=== PATIENT | female | born 1950 | race Hispanic/Latino ===

== ENCOUNTER 2019-08-26 20:50 | Observation (INO) | payer OTHER, MEDICARE ==
[~2019-08-26] VITALS: Ht 170.2 cm; Wt 55.3 kg
[2019-08-26 21:38] LABS: BASOPHILS % (AUTO) 0.5 % (0.0-5.0); HEMATOCRIT 37.5 % (36-48); LYMPHOCYTES % (AUTO) 42.1 % (21.0-51.0); MEAN CORPUSCULAR HGB CONC 33.3 g/dL (32.0-36.0); MEAN CORPUSCULAR VOLUME 90.1 fL (79-99); NEUTROPHILS % (AUTO) 48.2 % (40.0-77.0); PLATELET COUNT (AUTO) 278 K/uL (130-400); RED BLOOD CELL COUNT(AUTO) 4.16 MIL/uL (4.00-5.50); RED CELL DISTRIBUTION WIDTH 12.9 % (11.0-15.5); WHITE BLOOD COUNT (AUTO) 8.7 K/uL (4.8-10.8)
[2019-08-26 21:51] LABS: INR 0.91 (0.85-1.15); PARTIAL THROMBOPLASTIN TIME 27.5 SEC (26.3-35.5); PROTHROMBIN TIME 9.6 SEC (9.6-11.6)
[2019-08-26 21:52] LABS: CREATININE 0.7 mg/dL (0.5-1.5); POTASSIUM 3.6 mmol/L (3.5-5.1)
[2019-08-26] MEDS ORDERED: ASPIRIN 325 MG TABLET ONE (21:54)
[2019-08-26 21:55] LABS: ALBUMIN 3.9 g/dL (3.5-5.0); BILIRUBIN,TOTAL 0.5 mg/dL (0.2-1.0); TOTAL PROTEIN, SERUM 7.9 g/dL (6.0-8.3)
[2019-08-26 22:05] LABS: B-TYPE NATRIURETIC PEPTIDE < 5 pg/mL (0-100)
[2019-08-26] MEDS ORDERED: NITROGLYCERIN 0.4 MG SL TAB SL ONE (22:37)
[2019-08-26] MEDS ORDERED: NITROGLYCERIN 1GM/1 INCH PACKET TD ONE (23:24)
[2019-08-27] MEDS ORDERED: METF-446 PO (02:45)
[2019-08-27] MEDS ORDERED: GLIP10TA9 PO (02:45)
[2019-08-27] MEDS ORDERED: ATOR10 PO (02:45)
[2019-08-27] MEDS ORDERED: CLOP75TA32 PO (02:47)
[2019-08-27] MEDS ORDERED: LINA5TAB PO (02:47)
[2019-08-27] MEDS ORDERED: ASPI-1181 PO (02:47)
[2019-08-27] MEDS ORDERED: DEXTROSE 50%-WATER 50 ML DISP.SYRIN IV PRN (03:30)
[2019-08-27] MEDS ORDERED: GLUCAGON 1MG KIT 1 MG ML IM PRN (03:30)
[2019-08-27] MEDS ORDERED: NITROGLYCERIN 1GM/1 INCH PACKET TD ONE ×2 (04:51→12:56)
[2019-08-27] MEDS: NITROGLYCERIN 1GM/1 INCH PACKET TD SCH ×3 (04:52→18:00)
[2019-08-27 05:03] VITALS: BP 126/60
[2019-08-27 05:32] LABS: CREATINE KINASE, TOTAL 68 U/L (21-232); MYOGLOBIN 37 ng/mL (10-92); TROPONIN I < 0.04 ng/mL (0.00-0.06)
[2019-08-27] MEDS ORDERED: INSULIN HUMULIN R 100 UNIT/ML 3ML ONE ×2 (06:34→13:50)
[2019-08-27] MEDS: INSULIN R PO SS1 SQ SCH ×4 (06:41→22:49)
[2019-08-27] MEDS: ASPIRIN 325 MG TABLET PO SCH (09:00)
[2019-08-27] MEDS: METOPROLOL TARTRATE 25 MG TAB PO SCH ×2 (09:00→22:51)
[2019-08-27] MEDS ORDERED: METOPROLOL TARTRATE 25 MG TAB ONE (09:59)
[2019-08-27] MEDS ORDERED: ASPIRIN 325 MG TABLET ONE (10:11)
[2019-08-27 16:10] VITALS: BP 116/71
--- NOTE | 2019-08-27 16:29 | NUR ---
Initial Assessment Patient lives alone. No home services. DME: glucometer, cane, 2 wheel walker. Patient is independent and drives. PCP is Dr. Paxton Garcia. [facility]acy [facility] in [place]. DCP is home. Patient has copy of Medical Power of [employer]. Son, Bakari Huerta Jr is Health Care Agent. Emergency contact is daughter, Viv Singh, . Addendum: 08/27/19 at 1632 by AURELIO PERALES SS Amended: Links added.
[2019-08-27] MEDS ORDERED: HYDRALAZINE HCL 20 MG/ML VIAL IV PRN (18:45)
[2019-08-27] MEDS ORDERED: LACTULOSE 20 GM/30 ML UDCUP PO PRN (18:45)
[2019-08-27] MEDS ORDERED: IPRATROPIUM/ALBUTEROL SULFATE 3 ML SOLUTION IH PRN (18:45)
[2019-08-27] MEDS ORDERED: ATORVASTATIN CALCIUM 10 MG TABLET PO SCH (18:45)
[2019-08-27] MEDS ORDERED: ONDANSETRON HCL 4 MG/2 ML VIAL IVP PRN (18:45)
--- NOTE | 2019-08-27 18:50 | NUR ---
Called Dr. Osman's office to page for cardiology consult. Left message with answering services.
[2019-08-27 19:29] VITALS: BP 132/58
[2019-08-27] MEDS: GLIPIZIDE 5 MG TABLET PO SCH (22:50)
[2019-08-27] MEDS: METFORMIN HCL 500 MG TABLET PO SCH (22:51)
[2019-08-27 23:42] VITALS: BP 118/69
[2019-08-28] MEDS: NITROGLYCERIN 1GM/1 INCH PACKET TD SCH ×4 (00:27→18:00)
[2019-08-28 03:27] VITALS: BP 101/52
[2019-08-28 06:06] LABS: HEMATOCRIT 35.9 % (36-48); MEAN CORPUSCULAR HEMOGLOBIN 30.3 pg (27.0-33.0); MEAN CORPUSCULAR HGB CONC 33.7 g/dL (32.0-36.0); MEAN CORPUSCULAR VOLUME 89.8 fL (79-99); PLATELET COUNT (AUTO) 269 K/uL (130-400); RED CELL DISTRIBUTION WIDTH 12.8 % (11.0-15.5)
[2019-08-28 06:14] LABS: CREATININE 0.8 mg/dL (0.5-1.5); POTASSIUM 3.8 mmol/L (3.5-5.1)
[2019-08-28] MEDS: INSULIN R PO SS1 SQ SCH ×4 (06:28→22:44)
[2019-08-28 08:00] VITALS: BP 112/62
[2019-08-28] MEDS: LINAGLIPTIN 5 MG TABLET PO SCH (09:00)
[2019-08-28] MEDS: GLIPIZIDE 5 MG TABLET PO SCH ×2 (09:00→22:49)
[2019-08-28] MEDS: METFORMIN HCL 500 MG TABLET PO SCH ×2 (09:00→22:49)
[2019-08-28] MEDS: METOPROLOL TARTRATE 25 MG TAB PO SCH ×2 (10:18→22:49)
[2019-08-28] MEDS: ASPIRIN 325 MG TABLET PO SCH (10:18)
[2019-08-28] MEDS: CLOPIDOGREL BISULFATE 75 MG TAB PO SCH (10:21)
[2019-08-28] MEDS ORDERED: REGADENOSON 0.4 MG/5 ML PF SYG IVP SCH (11:30)
[2019-08-28 13:33] VITALS: BP 122/57
[2019-08-28 17:13] VITALS: BP 112/65
[2019-08-28 19:50] VITALS: BP 119/72
[2019-08-28 23:20] VITALS: BP 113/61
[2019-08-29] MEDS: NITROGLYCERIN 1GM/1 INCH PACKET TD SCH ×3 (00:23→13:09)
[2019-08-29 04:00] VITALS: BP 106/60
[2019-08-29] MEDS: INSULIN R PO SS1 SQ SCH ×2 (06:14→13:13)
[2019-08-29 08:00] VITALS: BP 118/58
[2019-08-29] MEDS: METOPROLOL TARTRATE 25 MG TAB PO SCH (09:23)
[2019-08-29] MEDS: ASPIRIN 325 MG TABLET PO SCH (09:23)
[2019-08-29] MEDS: METFORMIN HCL 500 MG TABLET PO SCH (09:24)
[2019-08-29] MEDS: CLOPIDOGREL BISULFATE 75 MG TAB PO SCH (09:24)
[2019-08-29] MEDS: LINAGLIPTIN 5 MG TABLET PO SCH (09:24)
[2019-08-29] MEDS: GLIPIZIDE 5 MG TABLET PO SCH (09:25)
[2019-08-29 11:53] VITALS: BP 121/71
== END 2019-08-29 16:20 | disposition home or self-care (01) ==
LOC: EDH 20:50 → EDHIP 22:46 → 3BH 08-27 16:29
PROVIDERS: ADMIT Internal Medicine; ATTEND Internal Medicine
DX: I25.110 Atherosclerotic heart disease of native coronary artery with unstable angina pectoris (principal); E11.9 Type 2 diabetes mellitus without complications; E78.5 Hyperlipidemia, unspecified; Z95.818 Presence of other cardiac implants and grafts; Z79.82 Long term (current) use of aspirin; Z79.02 Long term (current) use of antithrombotics/antiplatelets; Z79.84 Long term (current) use of oral hypoglycemic drugs; Z79.899 Other long term (current) drug therapy; Z88.0 Allergy status to penicillin
CPT/HCPCS: 36415 ×3; 71045 ×2; 78452; 80048; 80053; 82550 ×2; 82948 ×15; 83874; 83880; 84484 ×3; 85025; 85027; 85610; 85730; 93005 ×3; 93017; 93306; 93356; 94664; 96372 ×3; 96374; 99284; A9500 ×2; G0378 ×62; J1815 ×6; J2785; J7070

== ENCOUNTER → 2020-05-25 | Outpatient (CLI) | payer OTHER, MEDICARE ==
[~2020-05-25] MED LIST: ASPI-1443 PO; ATOR10 PO; CLOP75TA32 PO; GLIP10TA9 PO; LINA5TAB PO; METF-446 PO
== END | disposition home or self-care (01) ==
LOC: RAH 14:58
PROVIDERS: ATTEND Family Medicine
DX: Z12.31 Encounter for screening mammogram for malignant neoplasm of breast (principal)
CPT/HCPCS: 77067

== ENCOUNTER 2021-07-13 16:18 | Emergency (ER) | payer OTHER, MEDICARE ==
[~2021-07-13] VITALS: Ht 170.2 cm; Wt 50.3 kg
[2021-07-13 16:25] VITALS: BP 141/91
== END 2021-07-13 17:38 | disposition home or self-care (01) ==
LOC: EDH 16:18
DX: T83.092A Other mechanical complication of nephrostomy catheter, initial encounter (principal); E11.9 Type 2 diabetes mellitus without complications; Z79.82 Long term (current) use of aspirin; Z79.84 Long term (current) use of oral hypoglycemic drugs; Z79.899 Other long term (current) drug therapy; Z88.0 Allergy status to penicillin; Z90.49 Acquired absence of other specified parts of digestive tract; Y83.8 Other surgical procedures as the cause of abnormal reaction of the patient, or of later complication, without mention of misadventure at the time of the procedure; Y92.89 Other specified places as the place of occurrence of the external cause
CPT/HCPCS: 99281

== ENCOUNTER 2021-07-15 18:08 | Emergency (ER) | payer OTHER, MEDICARE ==
[~2021-07-15] VITALS: Ht 170.2 cm; Wt 50.3 kg
[2021-07-15 22:02] VITALS: BP 121/75
== END 2021-07-15 22:06 | disposition home or self-care (01) ==
LOC: EDH 18:08
DX: T83.032A Leakage of nephrostomy catheter, initial encounter (principal); E11.9 Type 2 diabetes mellitus without complications; Z88.0 Allergy status to penicillin; Z79.899 Other long term (current) drug therapy; Y84.8 Other medical procedures as the cause of abnormal reaction of the patient, or of later complication, without mention of misadventure at the time of the procedure; Y92.89 Other specified places as the place of occurrence of the external cause
CPT/HCPCS: 99281

== ENCOUNTER 2021-12-07 20:31 | Emergency (ER) | payer OTHER, MEDICARE ==
[~2021-12-07] VITALS: Ht 170.2 cm; Wt 47.2 kg
[2021-12-07 21:14] LABS: APPEARANCE,URINE CLOUDY (CLEAR); BILIRUBIN,URINE NEGATIVE (NEGATIVE); COLOR,URINE YELLOW (YELLOW); GLUCOSE, URINE (UA) 500 mg/dL (NEGATIVE); KETONES,URINE NEGATIVE (NEGATIVE); LEUKOCYTE ESTERASE ,URINE LARGE (NEGATIVE); NITRATE,URINE NEGATIVE (NEGATIVE); OCCULT BLOOD,URINE LARGE (NEGATIVE); PH,URINE 6.5 (5.0-8.0); PROTEIN,URINE 100 mg/dL (NEGATIVE); UROBILINOGEN,URINE 0.2 mg/dL (0.2-1.0)
[2021-12-07 21:26] LABS: BACTERIA,URINE Few /HPF (None Seen); SQUAMOUS EPITHELIAL CELL,UR Rare /HPF (0-2); WBC,URINE 51-100 /HPF (0-1)
[2021-12-07 21:41] LABS: BASOPHILS % (AUTO) 0.2 % (0.0-5.0); EOSINOPHILS % (AUTO) 0.5 % (0.0-8.0); HEMATOCRIT 31.9 % (36-48); LYMPHOCYTES % (AUTO) 61.7 % (21.0-51.0); MEAN CORPUSCULAR HEMOGLOBIN 31.1 pg (27.0-33.0); MEAN CORPUSCULAR HGB CONC 32.6 g/dL (32.0-36.0); MEAN CORPUSCULAR VOLUME 95.5 fL (79-99); NEUTROPHILS % (AUTO) 20.4 % (40.0-77.0); PLATELET COUNT (AUTO) 273 K/uL (130-400); RED BLOOD CELL COUNT(AUTO) 3.34 MIL/uL (4.00-5.50); RED CELL DISTRIBUTION WIDTH 15.1 % (11.0-15.5); WHITE BLOOD COUNT (AUTO) 4.1 K/uL (4.8-10.8)
[2021-12-07] MEDS ORDERED: PHENAZOPYRIDINE HCL 200 MG TABLET ONE (21:49)
[2021-12-07 21:51] LABS: CREATININE 0.6 mg/dL (0.5-1.5)
[2021-12-07 21:55] LABS: POTASSIUM 2.9 mmol/L (3.5-5.1)
[2021-12-07] MEDS ORDERED: KCL 20 MEQ ERTAB PO ONE (21:57)
[2021-12-07] MEDS ORDERED: PHEN-847 PO (22:30)
[2021-12-07] MEDS ORDERED: CEFTRIAXONE 1G VIAL IVP ONE (22:30)
[2021-12-07] MEDS ORDERED: CEPH500B PO (22:30)
[2021-12-07 22:38] VITALS: BP 126/78
== END 2021-12-07 22:58 | disposition home or self-care (01) ==
LOC: EDH 20:31
DX: N39.0 Urinary tract infection, site not specified (principal); E11.9 Type 2 diabetes mellitus without complications; Z88.0 Allergy status to penicillin; Z79.82 Long term (current) use of aspirin; Z79.84 Long term (current) use of oral hypoglycemic drugs; Z98.890 Other specified postprocedural states
CPT/HCPCS: 36415; 80048; 81001; 85025; 87088; 96374; 99283; J0696

== ENCOUNTER 2022-03-04 23:37 | Emergency (ER) | payer OTHER, MEDICARE ==
[~2022-03-04] VITALS: Ht 170.2 cm; Wt 46.3 kg
[~2022-03-04 23:37] MED LIST changes: +CEPH500B PO; +PHEN-847 PO
[2022-03-05 01:07] LABS: APPEARANCE,URINE CLEAR (CLEAR); BILIRUBIN,URINE NEGATIVE (NEGATIVE); COLOR,URINE YELLOW (YELLOW); GLUCOSE, URINE (UA) >=1000 mg/dL (NEGATIVE); KETONES,URINE NEGATIVE (NEGATIVE); LEUKOCYTE ESTERASE ,URINE TRACE (NEGATIVE); NITRATE,URINE NEGATIVE (NEGATIVE); OCCULT BLOOD,URINE MODERATE (NEGATIVE); PROTEIN,URINE NEGATIVE (NEGATIVE); UROBILINOGEN,URINE 0.2 mg/dL (0.2-1.0)
[2022-03-05 01:13] LABS: BACTERIA,URINE Few /HPF (None Seen); MUCUS,URINE Few LPF (None Seen); SQUAMOUS EPITHELIAL CELL,UR Few /HPF (0-2)
[2022-03-05] MEDS ORDERED: PHENAZOPYRIDINE HCL 200 MG TABLET PO ONE (02:00)
[2022-03-05] MEDS ORDERED: CEPHALEXIN 500 MG CAPSULE PO ONE (02:00)
[2022-03-05] MEDS ORDERED: PHEN-847 PO (02:30)
[2022-03-05] MEDS ORDERED: CEFD300C3 PO (02:30)
[2022-03-05 02:33] VITALS: BP 129/73
== END 2022-03-05 02:55 | disposition home or self-care (01) ==
LOC: EDH 23:37
DX: N39.0 Urinary tract infection, site not specified (principal); E11.9 Type 2 diabetes mellitus without complications; Z88.0 Allergy status to penicillin; Z79.82 Long term (current) use of aspirin; Z79.84 Long term (current) use of oral hypoglycemic drugs; Z85.43 Personal history of malignant neoplasm of ovary; Z90.49 Acquired absence of other specified parts of digestive tract
CPT/HCPCS: 81001

== ENCOUNTER 2023-01-05 23:23 | Emergency (ER) | payer OTHER, MEDICARE ==
[~2023-01-05] VITALS: Ht 165.1 cm; Wt 59.0 kg
[~2023-01-05 23:23] MED LIST changes: +CEFD300C3 PO
[2023-01-06 00:43] LABS: APPEARANCE,URINE CLEAR (CLEAR); BILIRUBIN,URINE NEGATIVE (NEGATIVE); COLOR,URINE COLORLESS (YELLOW); GLUCOSE, URINE (UA) NEGATIVE (NEGATIVE); KETONES,URINE NEGATIVE (NEGATIVE); LEUKOCYTE ESTERASE ,URINE NEGATIVE Leu/uL (NEGATIVE); NITRATE,URINE NEGATIVE (NEGATIVE); OCCULT BLOOD,URINE LARGE (NEGATIVE); PROTEIN,URINE 20 mg/dL (NEGATIVE); UROBILINOGEN,URINE 0.2 mg/dL (0.2-1.0)
[2023-01-06 00:49] LABS: BASOPHILS % (AUTO) 0.6 % (0.0-5.0); EOSINOPHILS % (AUTO) 1.6 % (0.0-8.0); HEMATOCRIT 36.8 % (36-48); LYMPHOCYTES % (AUTO) 31.5 % (21.0-51.0); MEAN CORPUSCULAR HEMOGLOBIN 33.8 pg (27.0-33.0); MEAN CORPUSCULAR HGB CONC 32.9 g/dL (32.0-36.0); MEAN CORPUSCULAR VOLUME 102.8 fL (79-99); MONOCYTES % (AUTO) 6.8 % (3.0-13.0); NEUTROPHILS % (AUTO) 59.4 % (40.0-77.0); PLATELET COUNT (AUTO) 252 K/uL (130-400); RED BLOOD CELL COUNT(AUTO) 3.58 MIL/uL (4.00-5.50); RED CELL DISTRIBUTION WIDTH 12.5 % (11.0-15.5); WHITE BLOOD COUNT (AUTO) 6.9 K/uL (4.8-10.8)
[2023-01-06 00:49] LABS: MUCUS,URINE RARE LPF (None Seen); WBC,URINE 26-50 /HPF (0-1)
[2023-01-06 01:00] LABS: CREATININE 0.7 mg/dL (0.5-1.5); POTASSIUM 3.6 mmol/L (3.5-5.1)
[2023-01-06 01:04] LABS: ALBUMIN 3.9 g/dL (3.5-5.0); TOTAL PROTEIN, SERUM 7.6 g/dL (6.0-8.3)
[2023-01-06] MEDS ORDERED: CEFTRIAXONE 1G VIAL IVPB ONE (02:30)
[2023-01-06] MEDS ORDERED: CEFU500T67 PO (03:42)
[2023-01-06 04:11] VITALS: BP 131/74
== END 2023-01-06 04:20 | disposition home or self-care (01) ==
LOC: EDH 23:23
DX: N39.0 Urinary tract infection, site not specified (principal); R33.9 Retention of urine, unspecified; E11.9 Type 2 diabetes mellitus without complications; Z79.82 Long term (current) use of aspirin; Z79.84 Long term (current) use of oral hypoglycemic drugs; Z79.899 Other long term (current) drug therapy; Z85.43 Personal history of malignant neoplasm of ovary; Z90.49 Acquired absence of other specified parts of digestive tract; Z88.0 Allergy status to penicillin
CPT/HCPCS: 99284; 80053; 85025; 87088; 81001; 36415; 96365; 51702; J0696

== ENCOUNTER → 2023-06-13 | Outpatient (CLI) | payer OTHER, MEDICARE ==
[~2023-06-13] MED LIST changes: +CEFU500T67 PO
== END | disposition home or self-care (01) ==
LOC: RAH 09:11
PROVIDERS: ATTEND Family Medicine
DX: Z12.31 Encounter for screening mammogram for malignant neoplasm of breast (principal)
CPT/HCPCS: 77067

== ENCOUNTER 2023-09-23 00:16 | Emergency (ER) | payer OTHER, MEDICARE ==
[~2023-09-23] VITALS: Ht 160 cm; Wt 58.1 kg
[2023-09-23] MEDS: KETOROLAC 30MG VIAL (30MG/ML) IVP ONE (00:34)
[2023-09-23] MEDS: FAMOTIDINE 20MG VIAL IV ONE (00:34)
[2023-09-23] MEDS: ONDANSETRON 4MG INJ IVP ONE (00:34)
[2023-09-23] MEDS: 0.9%NACL 1000ML 1,000 ML IV SCH (00:34)
[2023-09-23 00:40] LABS: BASOPHILS # (AUTO) 0.04 K/uL (0.00-0.20); BASOPHILS % (AUTO) 0.5 % (0.0-5.0); EOSINOPHILS # (AUTO) 0.08 K/uL (0.00-0.70); EOSINOPHILS % (AUTO) 0.9 % (0.0-8.0); IMMATURE GRANULOCYTE ABSOLUTE 0.01 K/uL (0-1); LYMPHOCYTES # (AUTO) 2.8 K/uL (1.0-4.8); LYMPHOCYTES % (AUTO) 32.3 % (21.0-51.0); MEAN CORPUSCULAR HGB CONC 33.7 g/dL (32.0-36.0); MEAN CORPUSCULAR VOLUME 101.1 fL (79-99); MONOCYTES # (AUTO) 0.6 K/uL (0.1-1.0); MONOCYTES % (AUTO) 6.4 % (3.0-13.0); NEUTROPHILS # (AUTO) 5.2 K/uL (1.8-7.7); NEUTROPHILS % (AUTO) 59.8 % (40.0-77.0); PLATELET COUNT (AUTO) 218 K/uL (130-400); RED BLOOD CELL COUNT(AUTO) 3.76 MIL/uL (4.00-5.50); RED CELL DISTRIBUTION WIDTH 12.6 % (11.0-15.5); WHITE BLOOD COUNT (AUTO) 8.6 K/uL (4.8-10.8)
[2023-09-23 00:44] LABS: RAPID GROUP A STREP negative (NEGATIVE)
[2023-09-23 00:51] LABS: CREATININE 1.1 mg/dL (0.5-1.5); POTASSIUM 3.9 mmol/L (3.5-5.1)
[2023-09-23 00:54] LABS: SARS-CoV-2, RNA, NAAT NEGATIVE SARS CoV-2 (NEGATIVE)
[2023-09-23 00:55] LABS: ALBUMIN 3.8 g/dL (3.5-5.0); BILIRUBIN,TOTAL 0.8 mg/dL (0.2-1.0); INFLUENZA TYPE A Negative For Type A (NEGATIVE); INFLUENZA TYPE B Negative For Type B (NEGATIVE); TOTAL PROTEIN, SERUM 7.7 g/dL (6.0-8.3)
[2023-09-23 01:04] LABS: APPEARANCE,URINE CLEAR (CLEAR); BILIRUBIN,URINE NEGATIVE (NEGATIVE); COLOR,URINE LIGHT-YELLOW (YELLOW); GLUCOSE, URINE (UA) NEGATIVE (NEGATIVE); KETONES,URINE NEGATIVE (NEGATIVE); LEUKOCYTE ESTERASE ,URINE 25 Leu/uL (NEGATIVE); NITRATE,URINE NEGATIVE (NEGATIVE); PROTEIN,URINE NEGATIVE (NEGATIVE); UROBILINOGEN,URINE 0.2 mg/dL (0.2-1.0)
[2023-09-23 01:09] LABS: ADD UA MICROSCOPIC YES
[2023-09-23 01:10] LABS: MUCUS,URINE RARE LPF (None Seen); RBC,URINE 0-1 /HPF (0-1)
[2023-09-23] MEDS ORDERED: IOHEXOL-350 75 ML VIAL IV ONE (01:17)
[2023-09-23] MEDS: CEFTRIAXONE 2GM VIAL IVPB ONE (01:54)
[2023-09-23] MEDS ORDERED: FAMO-136 PO (02:04)
[2023-09-23] MEDS ORDERED: OMEP-420 PO (02:04)
[2023-09-23] MEDS ORDERED: DSSL PO (02:04)
[2023-09-23 02:06] VITALS: BP 112/58; PULSE 74; RESP 17; O2SAT 98
== END 2023-09-23 02:22 | disposition home or self-care (01) ==
LOC: EDH 00:16
DX: N39.0 Urinary tract infection, site not specified (principal); K59.00 Constipation, unspecified; K29.70 Gastritis, unspecified, without bleeding; E11.9 Type 2 diabetes mellitus without complications; Z79.02 Long term (current) use of antithrombotics/antiplatelets; Z79.82 Long term (current) use of aspirin; Z79.84 Long term (current) use of oral hypoglycemic drugs; Z88.0 Allergy status to penicillin; Z90.49 Acquired absence of other specified parts of digestive tract; Z90.710 Acquired absence of both cervix and uterus; Z20.822 Contact with and (suspected) exposure to COVID-19
CPT/HCPCS: 99285; 74177; 96374; 96375; 71045; 87635; 84484; 80053; 83690; 85025; 87088; 87880; 87804 ×2; 81001; 36415; 93005; J3490; J7030; J0696; J2405; J1885; Q9967

== ENCOUNTER → 2023-11-13 | Outpatient (CLI) | payer OTHER, MEDICARE ==
[~2023-11-13] MED LIST changes: +DSSL PO; +FAMO-136 PO; +OMEP-420 PO
[2023-11-13] MEDS: REGADENOSON 0.4 MG/5 ML PF SYG IVP ONE (13:51)
== END | disposition home or self-care (01) ==
LOC: SHCH 08:24
PROVIDERS: ATTEND Internal Medicine Cardiovascular Disease
DX: I25.10 Atherosclerotic heart disease of native coronary artery without angina pectoris (principal)
CPT/HCPCS: 78452; 96374; 93017; J2785; A9500 ×2

== ENCOUNTER 2024-01-12 16:17 | Emergency (ER) | payer OTHER, MEDICARE ==
[~2024-01-12] VITALS: Ht 170.2 cm; Wt 62.1 kg
[2024-01-12 16:54] LABS: BASOPHILS # (AUTO) 0.03 K/uL (0.00-0.20); BASOPHILS % (AUTO) 0.4 % (0.0-5.0); EOSINOPHILS # (AUTO) 0.06 K/uL (0.00-0.70); EOSINOPHILS % (AUTO) 0.7 % (0.0-8.0); IMMATURE GRANULOCYTE ABSOLUTE 0.03 K/uL (0-1); LYMPHOCYTES % (AUTO) 36.9 % (21.0-51.0); MEAN CORPUSCULAR HEMOGLOBIN 33.4 pg (27.0-33.0); MEAN CORPUSCULAR HGB CONC 33.6 g/dL (32.0-36.0); MEAN CORPUSCULAR VOLUME 99.4 fL (79-99); MONOCYTES # (AUTO) 0.5 K/uL (0.1-1.0); MONOCYTES % (AUTO) 6.3 % (3.0-13.0); NEUTROPHILS # (AUTO) 4.5 K/uL (1.8-7.7); NEUTROPHILS % (AUTO) 55.3 % (40.0-77.0); PLATELET COUNT (AUTO) 251 K/uL (130-400); RED BLOOD CELL COUNT(AUTO) 3.62 MIL/uL (4.00-5.50); RED CELL DISTRIBUTION WIDTH 12.6 % (11.0-15.5); WHITE BLOOD COUNT (AUTO) 8.1 K/uL (4.8-10.8)
[2024-01-12 17:04] LABS: CREATININE 1.1 mg/dL (0.5-1.0); POTASSIUM 3.8 mmol/L (3.5-5.1)
[2024-01-12 17:13] LABS: ALBUMIN 3.5 g/dL (3.5-5.0); BILIRUBIN,TOTAL 0.6 mg/dL (0.2-1.0); TOTAL PROTEIN, SERUM 7.3 g/dL (6.0-8.3)
[2024-01-12] MEDS: ONDANSETRON 4MG INJ IV ONE ×2 (18:44→20:36)
[2024-01-12] MEDS: MORPHINE 4 MG SYG IVP ONE ×2 (18:44→20:37)
[2024-01-12] MEDS: 0.9%NACL 1000ML 1,000 ML IV ONE (18:44)
[2024-01-12 18:46] LABS: APPEARANCE,URINE CLEAR (CLEAR); BILIRUBIN,URINE NEGATIVE (NEGATIVE); COLOR,URINE LIGHT-YELLOW (YELLOW); GLUCOSE, URINE (UA) TRACE mg/dL (NEGATIVE); KETONES,URINE NEGATIVE (NEGATIVE); LEUKOCYTE ESTERASE ,URINE NEGATIVE Leu/uL (NEGATIVE); NITRATE,URINE NEGATIVE (NEGATIVE); PROTEIN,URINE NEGATIVE (NEGATIVE); UROBILINOGEN,URINE 0.2 mg/dL (0.2-1.0)
[2024-01-12 18:48] LABS: ADD UA MICROSCOPIC YES
[2024-01-12 18:50] LABS: BACTERIA,URINE RARE /HPF (None Seen); SQUAMOUS EPITHELIAL CELL,UR RARE /HPF (0-2); YEAST,URINE BUDDING FEW /HPF (None Seen); YEAST,URINE HYPHAE FEW /HPF (None Seen)
[2024-01-12] MEDS: KETOROLAC 15MG/ML VIAL (15MG/ML) IV ONE (20:33)
[2024-01-12 23:39] VITALS: BP 118/60; PULSE 60; RESP 20; O2SAT 98
== END 2024-01-12 23:40 | disposition home or self-care (01) ==
LOC: EDH 16:17
DX: K59.00 Constipation, unspecified (principal); I10 Essential (primary) hypertension; E11.9 Type 2 diabetes mellitus without complications; E78.00 Pure hypercholesterolemia, unspecified; Z79.82 Long term (current) use of aspirin; Z79.84 Long term (current) use of oral hypoglycemic drugs; Z79.899 Other long term (current) drug therapy; Z90.49 Acquired absence of other specified parts of digestive tract; Z90.710 Acquired absence of both cervix and uterus; Z98.890 Other specified postprocedural states; Z88.0 Allergy status to penicillin
CPT/HCPCS: 99285; 76705; 74176; 96374; 96361; 96375 ×2; 84484; 80053; 83690; 85025; 81001; 36415; 76856; 96376; 93005; J7030; J2405 ×2; J2270 ×2; J1885

== ENCOUNTER → 2024-05-21 | Outpatient (CLI) | payer OTHER, MEDICARE ==
[~2024-05-21] MED LIST changes: -ATOR10 PO; +BROMFENAC; -CEFD300C3 PO; -CEFU500T67 PO; -CEPH500B PO; -CLOP75TA32 PO; -DSSL PO; -FAMO-136 PO; -GLIP10TA9 PO; +ISOS30TA92 PO; -LINA5TAB PO; -METF-446 PO; -OMEP-420 PO; -PHEN-847 PO; +ROSU5TAB43 PO
== END | disposition home or self-care (01) ==
LOC: SHCH 10:11
PROVIDERS: ATTEND Internal Medicine Cardiovascular Disease
DX: R00.2 Palpitations (principal)
CPT/HCPCS: 93306

== ENCOUNTER → 2025-05-27 | Outpatient (CLI) | payer OTHER, MEDICARE ==
[~2025-05-27] MED LIST changes: -ROSU5TAB43 PO; +ROSU5TAB51 PO
--- NOTE | 2025-05-27 21:33 | HMCIMG ---
EXAM: CT ABDOMEN AND PELVIS WITHOUT INTRAVENOUS CONTRAST Technique: Multidetector helical computed tomography from the diaphragms through the inguinal region with axial acquisition and coronal/sagittal reformations. CTDIvol 5.9 mGy; DLP 316.20 mGy???cm. Dose-reduction techniques applied (automatic exposure control; patient-size???adjusted mA/kV; iterative reconstruction). Contrast: No intravenous contrast administered. Clinical Information: Dysuria. Findings: Lung bases: No pleural effusion, lobar collapse, or consolidation in the visualized portions. Liver: Normal size and morphology with smooth margins; no focal hepatic lesion or calcification; no biliary ductal dilatation; tom hepatis unremarkable. Gallbladder and biliary tree: Status post cholecystectomy. Pancreas: Normal size and attenuation; main pancreatic duct not dilated; no peripancreatic inflammatory change. Spleen: Normal size and attenuation; no focal lesion. Adrenals: Normal morphology bilaterally. Kidneys and ureters: Kidneys normal in size and cortical outline (right 10.1 cm, left 9.9 cm). No renal or ureteral calculi. No hydronephrosis or hydroureter. Corticomedullary differentiation preserved. No perinephric stranding. Stomach and duodenum: Stomach distended and normal in contour; gastroesophageal junction and pylorus unremarkable; duodenum normal. Small bowel: Normal distribution and caliber; normal wall thickness and mucosal pattern; mesenteric fat and omentum unremarkable. Colon and appendix: Rectum and colon contain fecal material without obstructive pattern; no computed tomography evidence of acute appendicitis. Peritoneum and mesentery: No free intraperitoneal fluid or free air. Lymph nodes: No pathologically enlarged lymph nodes. Retroperitoneum and vasculature: Aorta and inferior vena cava normal in course and caliber with mild aortic atherosclerotic calcifications. Pelvic organs: Urinary bladder normal in wall thickness and lumen. Uterus surgically absent. Abdominal wall/soft tissues: Extra-abdominal and paraspinal soft tissues unremarkable. Osseous structures: Severe bilateral sacroiliitis; no acute osseous abnormality. IMPRESSION:1. Severe bilateral sacroiliitis. 2. No urolithiasis or obstructive uropathy; kidneys normal in size (right 10.1 cm, left 9.9 cm) with preserved corticomedullary differentiation. 3. Status post cholecystectomy. 4. Mild aortic atherosclerotic calcifications. 5. Stool burden within the colon without evidence of obstruction. 6. Surgically absent uterus. /[place]
== END | disposition home or self-care (01) ==
LOC: RAH 13:26
PROVIDERS: ATTEND Internal Medicine
DX: M46.1 Sacroiliitis, not elsewhere classified (principal); I70.0 Atherosclerosis of aorta; R10.20 Pelvic and perineal pain unspecified side; N39.0 Urinary tract infection, site not specified; R30.0 Dysuria; Z90.49 Acquired absence of other specified parts of digestive tract; Z90.710 Acquired absence of both cervix and uterus
CPT/HCPCS: 74176

== ENCOUNTER → 2025-05-28 | Outpatient (CLI) | payer OTHER, MEDICARE ==
--- NOTE | 2025-05-28 15:30 | HMCIMG ---
EXAM: CT Pelvis without IV contrast CLINICAL HISTORY: URINARY TRACT INFECTION, EVALUATE FOR COLO VESICAL FISTULA TECHNIQUE: Axial computed tomography images of the pelvis without intravenous contrast. CONTRAST: without intravenous contrast. Oral contrast was given COMPARISON: None provided. FINDINGS: APPENDIX: No evidence of acute appendicitis on CT examination. PERITONEUM: No free fluid. No free air. There is normal appearance of the bladder. LYMPH NODES: No lymphadenopathy is evident. REPRODUCTIVE: Evidence of hysterectomy. VASCULATURE: No evidence of abdominal aortic aneurysm. BONES: No aggressive appearing osseous lesion. No acute osseous pathology evident. IMPRESSION: No acute pelvic abnormality. No evidence for colovesicular fistula /[place]
== END | disposition home or self-care (01) ==
LOC: RAH 10:43
PROVIDERS: ATTEND Internal Medicine
DX: N39.0 Urinary tract infection, site not specified (principal); Z90.710 Acquired absence of both cervix and uterus
CPT/HCPCS: 72192